=== PATIENT | male | born 1970 | race Two or more races ===

== ENCOUNTER 2023-04-07 13:49 | Emergency (ER) | payer OTHER ==
[~2023-04-07] VITALS: Ht 182.9 cm; Wt 115.7 kg
[2023-04-07] MEDS ORDERED: LOSARTAN-HCTZ1 EACH PO (14:36)
== END 2023-04-07 18:23 | disposition home or self-care (01) ==
LOC: ER 13:49
PROVIDERS: Nurse Practitioner Family
DX: R07.89 Other chest pain (principal); I10 Essential (primary) hypertension; Z88.6 Allergy status to analgesic agent

== ENCOUNTER 2023-05-29 20:05 | Emergency (ER) | payer OTHER ==
[~2023-05-29] VITALS: Ht 182.9 cm; Wt 122.5 kg
[~2023-05-29 20:05] MED LIST: LOSARTAN-HCTZ1 EACH PO
== END 2023-05-29 23:49 | disposition home or self-care (01) ==
LOC: ER 20:06
DX: M54.50 Low back pain, unspecified (principal); M62.830 Muscle spasm of back; Z88.6 Allergy status to analgesic agent; I10 Essential (primary) hypertension; Z86.79 Personal history of other diseases of the circulatory system

== ENCOUNTER 2023-09-19 02:18 | Emergency (ER) | payer OTHER ==
[~2023-09-19] VITALS: Ht 182.9 cm; Wt 113.4 kg
[2023-09-19] MEDS ORDERED: cloNIDine HCL 0.2 MG TABLET PO ONE (03:00)
[2023-09-19 03:56] LABS: HEMATOCRIT 41.6 % (39.0-48.0); HEMOGLOBIN 14.3 g/dL (13-16.00); MEAN CELL VOLUME 92.3 fL (80.0-100.00); MEAN CORPUSCULAR HEMOGLOBIN 31.8 pg (27.00-32.0); MEAN CORPUSCULAR HGB CONC 34.5 g/dl (32.0-36.0); PLATELET COUNT 209 K/uL (150-450); RED CELL DISTRIBUTION WIDTH 13.8 % (11.5-14.5)
[2023-09-19 04:03] LABS: ALBUMIN 3.8 gm/dL (3.4-5.0); BILIRUBIN TOTAL 0.49 mg/dL (0.3-1.2); CALCIUM 8.9 mg/dL (8.5-10.1); CREATININE SERUM 0.95 mg/dL (0.70-1.30); GFR 83.58; POTASSIUM 3.34 mEq/L (3.5-5.1); TOTAL PROTEIN 6.8 gm/dL (6.4-8.2)
== END 2023-09-19 04:45 | disposition home or self-care (01) ==
LOC: ER 02:18
PROVIDERS: General Practice
DX: R07.9 Chest pain, unspecified (principal); I10 Essential (primary) hypertension; Z88.6 Allergy status to analgesic agent